=== PATIENT | male | born 1950 | race Caucasian/White ===

== ENCOUNTER 2016-11-29 06:56 | Day surgery (SDC) | payer OTHER ==
--- NOTE | ~2016-11-29 | EGD ---
EGD REPORT [facility] [address] [address] NAME: BULMARO MELO : [birth year] STATUS : REG [facility]#: [id number] AGE: 66 ADM/REG DATE : 11/29/16 MR#: [id number] REPORT SERV DATE: 11/29/16 DICTATED BY: SAVITA HENDRIX DATE: 11/29/16 REPORT STATUS : Draft TRANSCRIBED BY: [facility] DATE: 11/29/16 Endoscopy Center Patient Name: Bulmaro Melo Date of : 1950 Attending MD: SAVITA HENDRIX, Procedure Date No Time: 11/29/2016 Procedure: Upper GI endoscopy Indications: Epigastric abdominal pain Referring MD: LORNA DEJESUS MD Complications: No immediate complications. Estimated blood loss: None. Procedure: Pre-Anesthesia Assessment: - ASA Grade Assessment: - ASA Grade Assessment: III - A patient with severe systemic disease. After obtaining informed consent, the endoscope was passed under direct vision. Throughout the procedure, the patient's blood pressure, pulse, and oxygen saturations were monitored continuously. The GIF [id number] was introduced through the mouth, and advanced to the efferent jejunal loop. The upper GI endoscopy was accomplished without difficulty. The patient tolerated the procedure well. Findings: The esophagus was normal. Evidence of a gastric bypass was found. A gastric pouch with a normal size was found. The staple line appeared intact. The gastrojejunal anastomosis was characterized by healthy appearing mucosa. This was traversed. Patchy mild inflammation characterized by erythema was found in the gastric body. Biopsies were taken with a cold forceps for histology. Verification of patient identification for the specimen was done. Estimated blood loss was minimal. The examined jejunum was normal. Impression: - Normal esophagus. - Gastric bypass with a normal-sized pouch intact staple line. - Gastritis. Biopsied. - Normal examined jejunum. Recommendation: - Patient has a contact number available for emergencies. The signs and symptoms of potential delayed complications were discussed with the patient. Return to normal activities tomorrow. Written discharge EGD REPORT [facility] [address] [place]. [address] NAME: BULMARO MELO : [birth year] STATUS : REG [facility]#: [id number] AGE: 66 ADM/REG DATE : 11/29/16 MR#: [id number] REPORT SERV DATE: 11/29/16 DICTATED BY: SAVITA HENDRIX DATE: 11/29/16 REPORT STATUS : Draft TRANSCRIBED BY: [employer] DATE: 11/29/16 instructions were provided to the patient. - Return to previous diet. - Await pathology results. Procedure Code(s): --- Professional --- 96321, Esophagogastroduodenoscopy, flexible, transoral; with biopsy, single or multiple Diagnosis Code(s): --- Professional --- Z98.84, Bariatric surgery status K29.70, Gastritis, unspecified, without bleeding R10.13, Epigastric pain CPT copyright 2013 [employer]. All rights reserved. The codes documented in this report are preliminary and upon warehouse delivery manager review may be revised to meet current compliance requirements. SAVITA HENDRIX, 11/29/2016 7:49 AM Number of Addenda: 0 Note Initiated On: 11/29/2016 7:30 AM Scope Withdrawal Time 0 hours 0 minutes 0 seconds [address] [place] [address]
[~2016-11-29 06:56] MED LIST: ARICEPT10 PO; CYANO1000T PO; CYMBALTA60 PO; D 5000 PO; ELIQUIS 5 MG TAB5 MG PO; FLOMAX4 PO; LEVOTHYROXIN50 MCG PO; NOR10 PO; PCET PO; PRILO PO; TRILEPTAL600 MG PO; Z100 PO; ZOVI200CAP PO
== END 2016-11-29 23:59 | disposition home or self-care (01) ==
LOC: DMU 06:56
PROVIDERS: Internal Medicine Gastroenterology
PROC: 0DB68ZX Excision of Stomach, Via Natural or Artificial Opening Endoscopic, Diagnostic (ICD-10-PCS; principal; 2016-11-29 07:30)
DX: K29.70 Gastritis, unspecified, without bleeding (principal); Z98.84 Bariatric surgery status; I48.91 Unspecified atrial fibrillation; Z86.73 Personal history of transient ischemic attack (TIA), and cerebral infarction without residual deficits; Z86.718 Personal history of other venous thrombosis and embolism; Z88.8 Allergy status to other drugs, medicaments and biological substances; Z79.01 Long term (current) use of anticoagulants; Z79.899 Other long term (current) drug therapy
CPT/HCPCS: 88305